=== PATIENT | female | born 1995 ===

== ENCOUNTER 2017-09-05 13:54 | Inpatient (IN) ==
[2017-09-05] MEDS ORDERED: ALBUTEROL 2.5 MG/3 ML NEB RESP TX STA (14:36)
[2017-09-05] MEDS ORDERED: ONDANSETRON 4 MG/2 ML VIAL IV PRN (15:15)
[2017-09-05 16:04] LABS: ABG Base Excess -9.2 MMOL/L (-2.5-2.5); ABG HCO3 14.3 MMOL/L (20-26); ABG Oxygen Saturation 93.9 % (95-100); ABG PH 7.374 (7.35-7.45); Allen Test Positive
[2017-09-05] MEDS ORDERED: ALBUTEROL 2.5 MG/3 ML NEB RESP TX PRN (16:31)
[2017-09-05] MEDS ORDERED: methylPREDNISolone SOD SUC 125 MG/2 ML VIAL IV ONE (17:00)
[2017-09-05] MEDS ORDERED: ALBUTEROL 2.5 MG/3 ML NEB RESP TX SCH (17:00)
[2017-09-05] MEDS ORDERED: LEVOFLOXACIN INJ 150 ML IV ONE (18:18)
[2017-09-05] MEDS ORDERED: methylPREDNISolone SOD SUC 125 MG/2 ML VIAL ONE (18:18)
[2017-09-05] MEDS: LEVOFLOXACIN INJ 750 MG in PREMIX 1 EACH IV SCH (18:42)
[2017-09-05] MEDS ORDERED: INFLUENZA VIRUS VACCINE 0.5 ML SYRINGE IM ONE (19:14)
[2017-09-05] MEDS: ALBUTEROL 2.5 MG/3 ML NEB RESP TX SCH ×2 (19:16→23:57)
[2017-09-05 19:18] LABS: Basophils # 0.1 10*3/uL (0.0-0.2); Basophils % 0.3 % (0.0-0.8); Hematocrit 38.2 VOL% (35.7-47.0); Hemoglobin 11.7 GM/DL (12.0-16.0); Immature Granulocytes % 0.6 %; Immature Granulocytes Absolute 0.09 #; Lymphocytes # 0.8 10*3/uL (1.4-4.0); Mean Corpuscular HGB Conc 30.6 GM/DL (32-36); Mean Corpuscular Hemoglobin 25 PG (27-34); Mean Corpuscular Volume 81.3 FL (87-102); Mean Platelet Volume 9.9 FL (9.6-12.0); Monocytes # 0.4 10*3/uL (0.11-0.8); Monocytes % 2.4 % (1.7-12.7); Neutrophils # 13.9 10*3/uL (1.4-7.4); Neutrophils % 91.7 % (38.7-73.9); Platelet Count 417 T/CUMM (130-400); Red Cell Distribution Width 13.9 % (9.3-17.3); White Blood Count 15.2 T/CUMM (4-12)
[2017-09-05 19:43] LABS: Calcium 8.9 MG/DL (8.5-10.1); Osmolality,Calculated 282.8 MOS/KG (273-304); Potassium 4.4 MMOL/L (3.5-5.1); Thyroid Stimulating Hormone 1.08 uIU/ml (0.358-3.74)
[2017-09-05 19:59] LABS: Band Neutrophils 1 % (0-10); Hypochromasia 2+; Lymphocytes 5 % (20-55); Platelet Estimate Increased; Segmented Neutrophils 92 % (50-85); Total Cells Counted 100
[2017-09-05] MEDS: MONTELUKAST 10 MG TABLET PO SCH (21:44)
[2017-09-06] MEDS: methylPREDNISolone SOD SUC 125 MG/2 ML VIAL IV SCH ×3 (01:15→19:07)
[2017-09-06] MEDS: ALBUTEROL 2.5 MG/3 ML NEB RESP TX SCH ×5 (03:07→20:27)
[2017-09-06 06:27] LABS: Basophils % 0.2 % (0.0-0.8); Hematocrit 36.8 VOL% (35.7-47.0); Hemoglobin 11.3 GM/DL (12.0-16.0); Immature Granulocytes % 0.7 %; Immature Granulocytes Absolute 0.14 #; Lymphocytes # 1.3 10*3/uL (1.4-4.0); Lymphocytes % 6.8 % (21.3-54.2); Mean Corpuscular HGB Conc 30.7 GM/DL (32-36); Mean Corpuscular Hemoglobin 25 PG (27-34); Mean Corpuscular Volume 79.8 FL (87-102); Mean Platelet Volume 10.3 FL (9.6-12.0); Monocytes # 0.5 10*3/uL (0.11-0.8); Monocytes % 2.5 % (1.7-12.7); Neutrophils # 17.2 10*3/uL (1.4-7.4); Neutrophils % 89.8 % (38.7-73.9); Platelet Count 430 T/CUMM (130-400); Red Blood Count 4.61 MC/CUMM (3.8-5.5); Red Cell Distribution Width 14.1 % (9.3-17.3); White Blood Count 19.1 T/CUMM (4-12)
[2017-09-06 07:02] LABS: Calcium 9.3 MG/DL (8.5-10.1); Osmolality,Calculated 277.7 MOS/KG (273-304); Potassium 4.6 MMOL/L (3.5-5.1)
[2017-09-06] MEDS: PANTOPRAZOLE 40 MG TABLET PO SCH (09:55)
[2017-09-06] MEDS ORDERED: DEXTROSE 50% 25 GM/50 ML VIAL IV PRN (10:58)
[2017-09-06] MEDS ORDERED: GLUCAGON 1 MG VIAL IM PRN (10:58)
[2017-09-06] MEDS: INSULIN LISPRO 100 UNIT/ML SUBCUT SCH ×2 (19:03→21:15)
[2017-09-06] MEDS: LEVOFLOXACIN INJ 750 MG in PREMIX 1 EACH IV SCH (19:07)
[2017-09-06] MEDS: MONTELUKAST 10 MG TABLET PO SCH (21:15)
[2017-09-07] MEDS: ALBUTEROL 2.5 MG/3 ML NEB RESP TX SCH ×7 (00:25→23:59)
[2017-09-07] MEDS: methylPREDNISolone SOD SUC 125 MG/2 ML VIAL IV SCH ×3 (02:10→16:48)
[2017-09-07 06:55] LABS: Basophils % 0.1 % (0.0-0.8); Hematocrit 37.2 VOL% (35.7-47.0); Hemoglobin 11.4 GM/DL (12.0-16.0); Immature Granulocytes Absolute 0.27 #; Lymphocytes # 1.5 10*3/uL (1.4-4.0); Lymphocytes % 5.7 % (21.3-54.2); Mean Corpuscular HGB Conc 30.6 GM/DL (32-36); Mean Corpuscular Hemoglobin 25 PG (27-34); Mean Corpuscular Volume 81.4 FL (87-102); Mean Platelet Volume 10.1 FL (9.6-12.0); Monocytes # 1.4 10*3/uL (0.11-0.8); Neutrophils # 23.7 10*3/uL (1.4-7.4); Neutrophils % 88.2 % (38.7-73.9); Platelet Count 445 T/CUMM (130-400); Red Blood Count 4.57 MC/CUMM (3.8-5.5); Red Cell Distribution Width 14.3 % (9.3-17.3); White Blood Count 26.9 T/CUMM (4-12)
[2017-09-07 07:16] LABS: Band Neutrophils 1 % (0-10); Hypochromasia 1+; Lymphocytes 3 % (20-55); Microcytosis 1+; Platelet Estimate Increased; Segmented Neutrophils 93 % (50-85); Total Cells Counted 100
[2017-09-07 07:25] LABS: Calcium 9.3 MG/DL (8.5-10.1); Osmolality,Calculated 280.7 MOS/KG (273-304); Potassium 4.9 MMOL/L (3.5-5.1)
[2017-09-07] MEDS: INSULIN LISPRO 100 UNIT/ML SUBCUT SCH ×4 (10:07→21:12)
[2017-09-07] MEDS: PANTOPRAZOLE 40 MG TABLET PO SCH (10:08)
[2017-09-07] MEDS: MONTELUKAST 10 MG TABLET PO SCH (20:23)
[2017-09-07] MEDS: LEVOFLOXACIN INJ 750 MG in PREMIX 1 EACH IV SCH (20:23)
[2017-09-08] MEDS: methylPREDNISolone SOD SUC 125 MG/2 ML VIAL IV SCH ×2 (01:00→09:39)
[2017-09-08] MEDS: ALBUTEROL 2.5 MG/3 ML NEB RESP TX SCH ×6 (03:03→23:35)
[2017-09-08 06:48] LABS: Basophils % 0.1 % (0.0-0.8); Hematocrit 35.9 VOL% (35.7-47.0); Hemoglobin 11.1 GM/DL (12.0-16.0); Immature Granulocytes % 1.3 %; Immature Granulocytes Absolute 0.27 #; Lymphocytes # 1.4 10*3/uL (1.4-4.0); Mean Corpuscular HGB Conc 30.9 GM/DL (32-36); Mean Corpuscular Hemoglobin 25 PG (27-34); Mean Corpuscular Volume 80.3 FL (87-102); Mean Platelet Volume 9.9 FL (9.6-12.0); Monocytes # 1.1 10*3/uL (0.11-0.8); Monocytes % 5.6 % (1.7-12.7); Neutrophils # 17.4 10*3/uL (1.4-7.4); Platelet Count 417 T/CUMM (130-400); Red Blood Count 4.47 MC/CUMM (3.8-5.5); Red Cell Distribution Width 14.4 % (9.3-17.3); White Blood Count 20.3 T/CUMM (4-12)
[2017-09-08 07:04] LABS: Calcium 8.6 MG/DL (8.5-10.1); Osmolality,Calculated 282.8 MOS/KG (273-304); Potassium 4.8 MMOL/L (3.5-5.1)
[2017-09-08 07:27] LABS: Band Neutrophils 1 % (0-10); Lymphocytes 5 % (20-55); Myelocytes 2 %; Segmented Neutrophils 88 % (50-85)
[2017-09-08 07:28] LABS: Platelet Estimate Normal; Total Cells Counted 100
[2017-09-08] MEDS: INSULIN LISPRO 100 UNIT/ML SUBCUT SCH ×4 (09:26→20:45)
[2017-09-08] MEDS: predniSONE 20 MG TABLET PO SCH (09:26)
[2017-09-08] MEDS: PANTOPRAZOLE 40 MG TABLET PO SCH (09:27)
[2017-09-08] MEDS: BUDESONIDE/FORMOTEROL 160-4.5 INHALER 6 GM INH SCH ×2 (12:31→20:47)
[2017-09-08] MEDS: LEVOFLOXACIN INJ 750 MG in PREMIX 1 EACH IV SCH (20:45)
[2017-09-08] MEDS: MONTELUKAST 10 MG TABLET PO SCH (20:46)
[2017-09-08] MEDS ORDERED: ENOXAPARIN 40 MG/0.4 ML SYRINGE SUBCUT SCH (21:00)
[2017-09-09] MEDS: ALBUTEROL 2.5 MG/3 ML NEB RESP TX SCH ×3 (04:15→11:42)
[2017-09-09 06:30] LABS: Basophils % 0.1 % (0.0-0.8); Eosinophils % 0.1 % (0.00-10.9); Hematocrit 34.6 VOL% (35.7-47.0); Lymphocytes # 3.7 10*3/uL (1.4-4.0); Lymphocytes % 21.6 % (21.3-54.2); Mean Corpuscular HGB Conc 31.8 GM/DL (32-36); Mean Corpuscular Hemoglobin 25 PG (27-34); Mean Corpuscular Volume 79.7 FL (87-102); Mean Platelet Volume 9.8 FL (9.6-12.0); Monocytes # 1.8 10*3/uL (0.11-0.8); Monocytes % 10.1 % (1.7-12.7); Neutrophils # 11.6 10*3/uL (1.4-7.4); Neutrophils % 67.1 % (38.7-73.9); Platelet Count 381 T/CUMM (130-400); Red Blood Count 4.34 MC/CUMM (3.8-5.5); Red Cell Distribution Width 14.4 % (9.3-17.3); White Blood Count 17.4 T/CUMM (4-12)
[2017-09-09 06:31] LABS: Immature Granulocytes Absolute 0.18 #
[2017-09-09 06:57] LABS: Calcium 8.2 MG/DL (8.5-10.1); Osmolality,Calculated 281.5 MOS/KG (273-304); Potassium 3.8 MMOL/L (3.5-5.1)
[2017-09-09] MEDS: INSULIN LISPRO 100 UNIT/ML SUBCUT SCH ×2 (09:18→12:09)
[2017-09-09] MEDS: predniSONE 20 MG TABLET PO SCH (09:19)
[2017-09-09] MEDS: BUDESONIDE/FORMOTEROL 160-4.5 INHALER 6 GM INH SCH (09:19)
[2017-09-09] MEDS: PANTOPRAZOLE 40 MG TABLET PO SCH (09:19)
[2017-09-09 10:21] VITALS: BP 119/74
== END 2017-09-09 11:47 | disposition home or self-care (01) | DRG 141 ==
LOC: N.ED 13:54 → N.EDINP 13:54 → N.4E 18:20 → N.CC 21:47 → SUATTDRO 09-06 13:06 → N.2E 09-06 21:51
PROVIDERS: ADMIT Internal Medicine; ATTEND Internal Medicine